=== PATIENT | male | born 1985 | race African-American/Black ===

== ENCOUNTER 2017-09-12 22:23 | Emergency (ER) | payer OTHER, MEDICAID ==
[~2017-09-12] VITALS: Ht 190.5 cm; Wt 74.4 kg
--- NOTE | 2017-09-12 22:23 | NUR ---
Brought in by Jonathan OROPEZA in custody, and amb to OF chair.
[2017-09-12 22:29] VITALS: BP 122/73
[2017-09-12] MEDS ORDERED: ARIPiprazole 10 MG TAB PO SCH (23:10)
--- NOTE | 2017-09-12 23:30 | NUR ---
Abilifblanka not available. Notified Dr Sheldon.
[2017-09-12 23:40] VITALS: BP 117/67
--- NOTE | 2017-09-12 23:40 | NUR ---
Patient discharged with v/s stable. Written and verbal after care instructions given and explained. Patient verbalized understanding. Police with in custody. All questions addressed prior to discharge. Advised to follow up with PMD.
== END 2017-09-12 23:40 ==
LOC: MED 22:23
DX: F20.9 Schizophrenia, unspecified (principal); F31.9 Bipolar disorder, unspecified; Z02.89 Encounter for other administrative examinations; Z88.5 Allergy status to narcotic agent
CPT/HCPCS: 99283

== ENCOUNTER 2018-09-01 22:08 | Emergency (ER) | payer MEDICAID, OTHER ==
--- NOTE | 2018-09-01 23:00 | NUR ---
PT CALLED TO BE TRIAGED, NO ANSWER. PATIENT LEFT WITHOUT BEING SEEN BY DR. PDERO. NO FURTHER CARE PROVIDED FOR PATIENT.
== END 2018-09-01 23:00 | disposition left against medical advice (07) ==
LOC: MED 22:08
DX: Z53.21 Procedure and treatment not carried out due to patient leaving prior to being seen by health care provider (principal)

== ENCOUNTER 2018-09-13 22:20 | Inpatient (IN) | payer OTHER, MEDICAID ==
[~2018-09-13] VITALS: Ht 188 cm; Wt 59.9 kg
[2018-09-13 22:20] VITALS: BP 112/64
--- NOTE | 2018-09-13 22:20 | NUR ---
PT CASS BLS. TAKEN TO BED 5
--- NOTE | 2018-09-13 22:30 | NUR ---
PT C/O SUICIDAL IDEATION AND DRUG INGESTION UNKNOWN AMOUNT OF "LEAN" WHICH PATIENT STATES IS COUGH SYRUP AND SPRITE. STATES "MY PLAN IS TO JUMP OFF OF SOMETHING." DENIES CP/SOB/NVD, A/OX4 ON ARRIVAL WITH VSS. HX---BIPOLAR, PARANOID SCHIZOPHRENIC, ADHD, HTN, SEIZURES MEDS--DEPAKOTE, ABILIFY, TOPAMATE
--- NOTE | 2018-09-13 22:51 | NUR ---
TELEPSYCH INITIATED PER DR. Dana AKBAR
--- NOTE | 2018-09-13 22:55 | NUR ---
PT CLARIFIED THAT HE DIDN'T DRINK COUGH SYRUP BUT THAT HE DRANK FROM THE "BROWN BOTTLE IN MY BAG" BROWN BOTTLE IN BAG IS PT'S DIVALPROEX PRESCRIPTION AND THERE IS APPROX 150 ML MISSING FROM BOTTLE. PRESCRIPTION STATES HE'S SUPPOSED TO TAKE 3, 15 ML CUPS BID 250 MG/5ML. 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
--- NOTE | 2018-09-13 23:05 | NUR ---
LAB AT BEDSIDE
--- NOTE | 2018-09-13 23:06 | NUR ---
DR. AKBAR MADE AWARE OF POISON CTRL REC'S
--- NOTE | 2018-09-13 23:21 | NUR ---
LAB AT BEDSIDE
[2018-09-13 23:44] LABS: APPEARANCE,URINE CLEAR (CLEAR); BILIRUBIN,URINE NEGATIVE (NEGATIVE); BLOOD, URINE NEGATIVE (NEGATIVE); COLOR,URINE YELLOW (YELLOW); LEUKOCYTE ESTERASE ,URINE NEGATIVE (NEGATIVE); NITRITE, URINE NEGATIVE (NEGATIVE); UGLUCOSE NEGATIVE (NEGATIVE)
[2018-09-13 23:51] LABS: BARBITURATE, URINE NEG. ng/ml (NEG <=200); BENZODIAZEPINE, URINE NEG. ng/mL (NEG <=200); CANNABINOID, URINE POS. ng/mL (NEG <=50); COCAINE, URINE NEG. ng/mL (NEG <=300); OPIATE, URINE NEG. ng/mL (NEG <=2000); PHENCYCLIDINE SCREEN,URINE NEG. ng/mL (NEG <=25)
[2018-09-13 23:58] LABS: BASOPHILS # (AUTO) 0.1 K/uL (0.00-0.22); BASOPHILS % (AUTO) 0.7 % (0.0-2.0); EOSINOPHILS # (AUTO) 0.2 K/uL (0-0.4); EOSINOPHILS % (AUTO) 1.9 % (0.0-4.0); HEMATOCRIT 43.1 % (36-52); HEMOGLOBIN 14.2 g/dL (12.0-18.0); LYMPHOCYTES # (AUTO) 2.4 K/uL (2.0-11.5); LYMPHOCYTES % (AUTO) 24.8 % (20.5-51.1); MEAN CORPUSCULAR HEMOGLOBIN 32 pg (27-31); MEAN CORPUSCULAR HGB CONC 33 g/dL (33-37); MEAN CORPUSCULAR VOLUME 96.1 fL (80-94); MONOCYTES # (AUTO) 0.6 K/uL (0.8-1.0); MONOCYTES % (AUTO) 6.6 % (1.7-9.3); NEUTROPHILS # (AUTO) 6.3 K/uL (1.8-7.7); PLATELET COUNT (AUTO) 281 K/uL (140-450); RED BLOOD CELL COUNT(AUTO) 4.48 MIL/uL (4.20-6.10); RED CELL DISTRIBUTION WIDTH 14.4 % (11.6-13.7); WHITE BLOOD COUNT (AUTO) 9.6 K/uL (4.8-10.8)
--- NOTE | 2018-09-13 23:59 | NUR ---
TELEPSYCH, DR. VIDES, SPEAKING WITH MARY STARKEY
--- NOTE | 2018-09-14 00:07 | NUR ---
TELEPSYCH, DR. VIDES, SPEAKING WITH PATIENT VIA REMOTE COMMUNICATION
[2018-09-14 00:09] LABS: ANION GAP 10.9 (8-16); CARBON DIOXIDE 26.7 mmol/L (21-32); CHLORIDE 107 mmol/L (98-107); CREATININE 1.6 mg/dL (0.7-1.3); GFR ARICAN-AMERICAN 65 mL/min (>90); GLUCOSE 69 mg/dL (74-106); POTASSIUM 3.6 mmol/L (3.5-5.1); SODIUM SERUM 141 mmol/L (136-145); UREA NITROGEN, BLOOD 15 mg/dL (7-18)
[2018-09-14 00:15] LABS: ALBUMIN 3.3 g/dL (3.4-5.0); ASPARTATE AMINOTRANSFERASE 17 U/L (15-37); SALICYLATE < 2.8 mg/dL (2.8-20.0); TOTAL BILIRUBIN 0.4 mg/dL (0.0-1.0)
[2018-09-14 00:16] LABS: ACETAMINOPHEN < 0.5 ug/ml (10-30)
--- NOTE | 2018-09-14 00:22 | NUR ---
BELONGINGS COLLECTED BY SECURITY
--- NOTE | 2018-09-14 00:26 | NUR ---
[place] [employer] AT BEDSIDE
--- NOTE | 2018-09-14 00:46 | NUR ---
Gen garcia in ED - 09/14/18 at 0046 by [email or web address] ETA FOR [facility] IS 40 MIN
--- NOTE | 2018-09-14 00:58 | NUR ---
[place] [employer] OFFICER PLACED PT ON A 5150 HOLD
--- NOTE | 2018-09-14 01:29 | NUR ---
REPORT GIVEN TO SEAN HERNANDEZ, TRANSFER OF CARE AT THIS TIME
--- NOTE | 2018-09-14 01:48 | NUR ---
Dr. Gary evaluating patient at bedside.
--- NOTE | 2018-09-14 02:05 | NUR ---
POISON CONTROL CALLED UP AND UPDATED THE CONDITION OF THE PATIENT.AND RECOMMEND AMMONIA , AND VALPROIC ACID LEVEL EVERY 4 HOURS, AND IVF.
--- NOTE | 2018-09-14 02:05 | NUR ---
ERMD NOTED WITH ORDERS AND CARRIED OUT.MEDICATED , PATIENTS TOLERATED WELL.
[2018-09-14] MEDS ORDERED: NACL 0.9% 1,000 ML IV ONE ×2 (02:10→04:10)
--- NOTE | 2018-09-14 03:00 | NUR ---
PATIENT IS HUNGRY, SANDWICHES WAS GIVEN WITH GOOD APPETITE.
[2018-09-14] MEDS ORDERED: ACETAMINOPHEN 325 MG TAB PO PRN (03:45)
[2018-09-14] MEDS ORDERED: LORazepam 2 MG/ML VIAL IM/IVP PRN (03:45)
[2018-09-14] MEDS ORDERED: NACL 0.9% 1,000 ML IV SCH (03:45)
[2018-09-14] MEDS ORDERED: ZOLPIDEM 5 MG TAB PO PRN (03:45)
[2018-09-14] MEDS ORDERED: HYDROcodone/APAP 5/325 MG 1 TAB TAB PO PRN (03:45)
[2018-09-14] MEDS ORDERED: ONDANSETRON 4 MG/2 ML VIAL IM/IVP PRN (03:45)
[2018-09-14] MEDS ORDERED: DOCUSATE SODIUM 100 MG GELCAP PO PRN (03:45)
--- NOTE | 2018-09-14 03:45 | NUR ---
ALL RESULTS BACK AND NO PLACEMENT MADE NOTED BY ANH ANF FOR ADMISSION.
--- NOTE | 2018-09-14 03:51 | NUR ---
Patient will be admitted to care of DR REBEKAH Bautista. Admited to MS. Will go to room 109 B. Belongings list completed. Report to ALDEN HERNANDEZ
[2018-09-14 04:00] VITALS: BP 107/57
--- NOTE | 2018-09-14 04:00 | NUR ---
RECEIVED BEDSIDE REPORT FROM ER NURSE. PATIENT IS AWAKE, ALERT, AND COOPERATIVE. RESPIRATION EVEN UNLABORED ON ROOM AIR. SKIN IS WARM AND DRY. IV PATENT AND INTACT. LUNGS SOUNDS CLEAR ON AUSCULTATION. BOWEL SOUNDS PRESENT IN ALL 4 QUADRANTS. ABDOMEN SOFT AND NON-TENDER. LAST BM 09/12/18. MRSA SCREEN DONE. ORIENT PATIENT TO ROOM, STAFF, AND CALL LIGHT. PATIENT IS ON 1 TO 1 SITTER DUE TO CC OF SUICIDAL IDEATION. ALL SAFETY MEASURE IN PLACE. BED IS AT LOW POSITION. CALL LIGHT WITHIN REACH AND ABLE TO VERBALIZES ITS USE. WILL CONTINUE TO MONITOR
--- NOTE | 2018-09-14 04:10 | NUR ---
NOTED TRACKING DEVICE ON THE LEFT ANKLE.
[2018-09-14] MEDS ORDERED: ARIP15TA1 PO (04:12)
[2018-09-14] MEDS ORDERED: DIVA500T1 PO (04:12)
[2018-09-14] MEDS ORDERED: TOPI50TA PO (04:12)
[2018-09-14 04:27] LABS: CHOL/HDL RATIO 1.7 (1-4.5); FREE T4 (FREE THYROXINE) 0.81 ng/dL (0.76-1.46); MAGNESIUM 2.3 mg/dL (1.8-2.4); PHOSPHORUS 4.9 mg/dL (2.5-4.9); THYROID STIMULATING HORMONE 0.39 uIU/mL (0.34-3.74)
--- NOTE | 2018-09-14 06:00 | NUR ---
CHECKED PATIENT. PATIENT SLEEPING RESPIRATION EVEN UNLABORED ON ROOM AIR. NO DISTRESS NOTED. SITTER AT BEDSIDE. WILL CONTINUE TO MONITOR
[2018-09-14 06:26] LABS: BASOPHILS # (AUTO) 0.1 K/uL (0.00-0.22); BASOPHILS % (AUTO) 0.7 % (0.0-2.0); EOSINOPHILS # (AUTO) 0.3 K/uL (0-0.4); HEMATOCRIT 41.2 % (36-52); HEMOGLOBIN 13.8 g/dL (12.0-18.0); LYMPHOCYTES # (AUTO) 2.4 K/uL (2.0-11.5); LYMPHOCYTES % (AUTO) 31.9 % (20.5-51.1); MEAN CORPUSCULAR HEMOGLOBIN 32 pg (27-31); MEAN CORPUSCULAR HGB CONC 33 g/dL (33-37); MEAN CORPUSCULAR VOLUME 96.2 fL (80-94); MONOCYTES # (AUTO) 0.6 K/uL (0.8-1.0); MONOCYTES % (AUTO) 7.8 % (1.7-9.3); NEUTROPHILS # (AUTO) 4.1 K/uL (1.8-7.7); NEUTROPHILS % (AUTO) 55.6 % (42.2-75.2); PLATELET COUNT (AUTO) 260 K/uL (140-450); RED BLOOD CELL COUNT(AUTO) 4.28 MIL/uL (4.20-6.10); RED CELL DISTRIBUTION WIDTH 14.3 % (11.6-13.7); WHITE BLOOD COUNT (AUTO) 7.4 K/uL (4.8-10.8)
[2018-09-14 06:29] LABS: PROTHROMBIN TIME 11.7 secs (10.8-13.4)
--- NOTE | 2018-09-14 07:20 | NUR ---
ENDORSED PATIENT TO DAY SHIFT NURSE. PATIENT CONDITION STABLE.
--- NOTE | 2018-09-14 07:30 | NUR ---
RECEIVED PT AAOX4. NO SOB NOTED. NO C/O PAIN AT THIS TIME. IV TO LT HAND PATENT AND INTACT. CHEST CLEAR. ABDOMEN SOFT, BOWEL SOUNDS PRESENT. NO EDEMA NOTED. WITH TRACKING ANKLE BRACELET NOTED ON LT LEG. INSTRUCTED PT TO CALL FOR ASSISTANCE, CALL LIGHT WITHIN REACH, VERBALIZED UNDERSTANDING.
[2018-09-14 08:00] VITALS: BP 135/73
[2018-09-14] MEDS ORDERED: ARIPiprazole 10 MG TAB PO SCH (09:00)
--- NOTE | 2018-09-14 09:00 | NUR ---
DR. ARSHAD HERE TO SEE PT.
--- NOTE | 2018-09-14 09:30 | NUR ---
PT REFUSED SCHEDULED MEDS, RISKS AND CONSEQUENCES EXPLAINED TO PT, VERBALIZED UNDERSTANDING.
--- NOTE | 2018-09-14 12:50 | NUR ---
CONTACTED PT'S FILM CRITIC (TEL#: [phone]) BRYANT. NO ANSWER, STATED MAIL BOX IS FULL AND IS UNABLE TO LEAVE MESSAGES AT THIS TIME.
--- NOTE | 2018-09-14 13:30 | NUR ---
CONTACTED MERLYN OROPEZA. OFFICER NATASHA CAME AND STATED HE WILL CHECK THE [facility] B[facility] IF PT IS ON PROBATION.
--- NOTE | 2018-09-14 14:00 | NUR ---
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 OFFICER NATASHA STATED PT CAN GO HOME TODAY.
--- NOTE | 2018-09-14 14:06 | NUR ---
MONICA FROM POISON CONTROL CALLED AND ASKED REGARDING THE DEPAKOTE LEVEL THE LEVEL WAS 28 AND NOTIFIED HER
[2018-09-14] MEDS ORDERED: INFLUENZA VIRUS VACCINE QUAD 0.5 ML SYR IMVAC PRN (14:45)
--- NOTE | 2018-09-14 15:00 | NUR ---
DISCHARGE INSTRUCTIONS GIVEN TO WHICH VERBALIZED FULL UNDERSTANDING OF THE INSTRUCTIONS GIVEN AND THE NEED TO FOLLOW UP WITH DR. ARSHAD IN 3-5 DAYS. ARM BANDS AND IV REMOVED, CANNULA TIP INTACT. BUS PASS GIVEN REQUESTED BY PT. HOMELESS RESOURCES GIVEN TO PT WELL. PT STATED HE WILL GO STRAIGHT TO [facility].
--- NOTE | 2018-09-14 15:10 | NUR ---
PT IS D/C FROM [facility] IN STABLE CONDITION, AMBULATORY WITH STEADY GAIT. NO SOB NOTED. NO C/O PAIN. PT IS GOING TO [facility].
--- NOTE | 2018-09-14 16:00 | NUR ---
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 OFFICER NATASHA STATED PT CAN GO HOME TODAY. Addendum: 09/14/18 at 1720 by Sabra Hull RN DISREGARD ABOVE NOTES, WRONG TIME.
== END 2018-09-14 15:10 | disposition home or self-care (01) | DRG 917 ==
LOC: MED 22:20 → MTU 09-14 03:51 → MERGE 09-14 03:51
PROVIDERS: ADMIT General Practice; ATTEND General Practice
DX: T42.6X2A Poisoning by other antiepileptic and sedative-hypnotic drugs, intentional self-harm, initial encounter (principal); G92 Toxic encephalopathy; N17.0 Acute kidney failure with tubular necrosis; R45.851 Suicidal ideations; E44.1 Mild protein-calorie malnutrition; Z68.1 Body mass index [BMI] 19.9 or less, adult; F25.9 Schizoaffective disorder, unspecified; F17.210 Nicotine dependence, cigarettes, uncomplicated; F14.19 Cocaine abuse with unspecified cocaine-induced disorder; F19.19 Other psychoactive substance abuse with unspecified psychoactive substance-induced disorder; F32.9 Major depressive disorder, single episode, unspecified; Y92.89 Other specified places as the place of occurrence of the external cause; Z88.5 Allergy status to narcotic agent; Z59.0 Homelessness; Z23 Encounter for immunization
CPT/HCPCS: 36415; 71045; 80053; 80305; 81003; 82140; 82150; 83036; 83690; 83735; 83880; 84100; 84439; 84443; 84484; 85025; 85610; 85730; 87081; 93005; 96360; 99285; G0480; G0482; J7030

== ENCOUNTER 2019-02-12 15:57 | Emergency (ER) | payer OTHER, MEDICAID ==
[~2019-02-12] VITALS: Ht 182.9 cm; Wt 64.9 kg
[~2019-02-12 15:57] MED LIST: ARIP15TA1 PO; DIVA500T1 PO; TOPI50TA PO
[2019-02-12 16:01] VITALS: BP 126/75
[2019-02-12 17:03] VITALS: BP 122/70
== END 2019-02-12 17:03 ==
LOC: MED 15:57
DX: I10 Essential (primary) hypertension (principal); F20.9 Schizophrenia, unspecified; Z88.5 Allergy status to narcotic agent; Z79.899 Other long term (current) drug therapy; Z02.89 Encounter for other administrative examinations
CPT/HCPCS: 99283

== ENCOUNTER 2019-05-21 11:01 | Emergency (ER) | payer OTHER, MEDICAID ==
[~2019-05-21] VITALS: Ht 185.4 cm; Wt 83.0 kg
--- NOTE | 2019-05-21 11:02 | NUR ---
Patient BIBA BLS, transferred to bed 10. RN evaluating patient at bedside.
[2019-05-21 11:09] VITALS: BP 134/72
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
--- NOTE | 2019-05-21 11:51 | NUR ---
ROSE DANIEL GIRLFRIEND OF PATIENT CALLED. PER PT NAYLA TO GIVE INFORMATION OVER PHONE. JESI CHARGE NURSE NOTIFIED AND AWARE. PER ROSE TO CALL IF ANY CHANGES ON PATIENT STATUS. CONTACT INFORMATION: CELLPHONE: [phone]
--- NOTE | 2019-05-21 12:31 | NUR ---
PT RESTING IN BED, PT CALM, SIDE RAIL X1
--- NOTE | 2019-05-21 13:12 | NUR ---
REPORT GIVEN TO MARY JARA FOR CONTINUITY OF CARE
--- NOTE | 2019-05-21 13:37 | NUR ---
PATIENT ALERT AND ORIENTED, BREATHING EVEN AND UNLABORED, WILL CONTINUE TO MONITOR.
[2019-05-21] MEDS ORDERED: ONDANSETRON 4 MG ODT PO ONE (13:40)
--- NOTE | 2019-05-21 15:24 | NUR ---
Patient discharged with v/s stable. Written and verbal after care instructions ABOUT GASTRITIS given and explained. Patient alert, oriented and verbalized understanding of instructions. Ambulatory with steady gait. All questions addressed prior to discharge. ID band removed. Patient advised to follow up with PMD. Rx of TOPAMAX, ZOFRAN, AND DEPAKOTE given. Patient educated on indication of medication including possible reaction and side effects. Opportunity to ask questions provided and answered.
--- NOTE | 2019-05-21 15:28 | NUR ---
PT REPORTS BEING HOMELESS. PT WITH APPROPRIATE CLOTHING FOR WEATHER. PROVIDED BUS PASS FOR TRANSPORTATION AND SANDWICH FOR MEAL. PT PROVIDED WITH HOMELESS RESOURCE PACKET, HOMELESS WAIVER FORM SIGNED.
[2019-05-21 15:32] VITALS: BP 123/79
== END 2019-05-21 15:24 | disposition home or self-care (01) ==
LOC: MED 11:01
DX: R10.9 Unspecified abdominal pain (principal); F20.0 Paranoid schizophrenia; I10 Essential (primary) hypertension; Z76.0 Encounter for issue of repeat prescription; Z88.5 Allergy status to narcotic agent; Z79.899 Other long term (current) drug therapy
CPT/HCPCS: 99283; Q0162